=== PATIENT | male | born 1990 | race Caucasian/White ===

== ENCOUNTER 2023-03-05 07:30 | Inpatient (IN) ==
--- NOTE | 2023-03-05 07:38 | ED.PDOC ---
General ED Provider: Dr. DANAY CAREY MD Chief Complaint: Chest Pain Stated Complaint: chest pain Time Seen by Provider: 03/05/23 07:36 Nursing and Triage Documentation Reviewed and Agree: Yes Does patient meet sepsis criteria?: No System Inflammatory Response Syndrome: Not Applicable Sepsis Protocol: For patient's 13 years and over: Temp is 96.8 and below OR 101 and greater Pulse >90 BPM Resp >20/minute Acutely Altered Mental Status Are patient's symptoms suggestive of a new infection, such as: -Pneumonia -Skin, Soft Tissue -Endocarditis -UTI -Bone, Joint Infection -Implantable Device -Acute Abdominal Infection -Wound Infection -Meningitis -Blood Stream Catheter Infection -Unknown Cardiovascular Complaint Exam Chest Pain Complaint/Exam Onset: Sudden Duration: ~0600 Symptoms Are: Still present Timing: Constant Initial Severity: Moderate Current Severity: Mild Location: Reports Discrete Pain Radiates: Reports Left shoulder and Right shoulder Character: Reports Crushing, Tightness and Sharp Aggravating: Reports None Alleviating: Denies None (Zofran) Associated Signs and Symptoms: Reports Diaphoresis, Nausea, Vomiting and Cough (smoker) Related History: Denies Similar episode Related Surgical History: Reports None History of Healthcare-Acquired Pneumonia: Reports No AMI/ACS Risk Factors: Reports Diabetes and Smoking TAD Risk Factors: Reports Smoking Pulmonary Embolism Risk Factors: Reports Smoking Recent Stress Test: No Recent Echo/LV Function: No JVD Present: No Subcutaneous Emphysema Present: No Diminshed Breath Sounds: Yes Differential Diagnoses: Acute SC, ACS, Stable Angina, Unstable Angina, Chest Wall Pain, GI Diseasae and Lower Resp. Infection Quality Indicators For Acute SC or Cardiac Chest Pain: EKG in 10min. Review of Systems Review Of Systems Constitutional: Reports Sweats (with emesis) Cardiac: Reports Chest pain GI: Reports Nausea and Vomiting All Other Systems: Reviewed and Negative [facility] Medical History Diabetes (~1997) E11.9 - Type 2 diabetes mellitus without complications (ICD-10) Surgical History History of ankle surgery Z98.890 - Other specified postprocedural states (ICD-10) Physical Exam Physical Exam Appearance: Reports Well-appearing and Well-nourished Ill-appearing: None Pain Distress: Moderate Eyes: Reports MENDY, EOMI and Conjunctiva clear ENT: Reports Ears normal and Nose normal Neck: Nonsupple (normal age-appropriate external appearance) Respiratory: Reports Airway patent, Breath sounds clear, Breath sounds equal and Breath sounds diminished Cardiovascular: Reports RRR GI/: Reports Soft, Nontender and Bowel sounds normal Musculoskeletal: Reports Normal strength and ROM intact Skin: Reports Warm, Dry and Normal color Neurological: Reports Sensation intact, Motor intact, Cranial nerves intact, Alert and Oriented Psychiatric: Reports Affect appropriate and Mood appropriate Interpretation EKG Interpretation Time of EKG #1: 15:30 Rate: Tachy (103) Rhythm: Sinus Ectopy: None [place]: NL ST Segment: Normal Interpretation: sinus tach, otherwise WNL Critical Care Note Critical Care Note Total Critical Care Time (mins): 0 Course Course 03/06/23 04:03 03/06/23 17:50 Orders, Labs, Meds: Lab Review 03/05/23 03/05/23 03/05/23 08:09 08:19 08:28 WBC 20.29 H RBC 4.98 Hgb 14.5 Hct 43.9 MCV 88.2 MCH 29.1 MCHC 33.0 RDW Coeff of Tam 12.4 Plt Count 283 Immature Gran % (Auto) 0.7 Neut % (Auto) 68.2 Lymph % (Auto) 22.8 [place] % (Auto) 6.9 Eos % (Auto) 1.0 Baso % (Auto) 0.4 Neut # (Auto) 13.8 H Lymph # (Auto) 4.6 H [place] # (Auto) 1.4 Eos # (Auto) 0.2 Baso # (Auto) 0.1 Immature Gran # (Auto) 0.1 Puncture Site Base Excess O2 Saturation ABG pH ABG pCO2 ABG pO2 ABG HCO3 ABG Total CO2 [place] Test Hemoglobin Oxyhemoglobin Carboxyhemoglobin Total Hemoglobin FiO2 % Sodium 132.3 L Potassium 5.10 Chloride 98.7 Carbon Dioxide 10.0 L Anion Gap 28.70 BUN 16.4 Creatinine 1.14 H Estimated GFR (MDRD) 74.00 BUN/Creatinine Ratio 14.38 Glucose 710.9 H* Hemoglobin A1c 12.8 H Lactic Acid Calcium 8.85 Magnesium 1.88 Total Bilirubin 0.74 AST 34.0 ALT 25.5 Alkaline Phosphatase 136.1 H Total Creatine Kinase 158.5 CK-MB (CK-2) 1.690 CK-MB (CK-2) % 1.0600 Troponin I < 0.012 NT-Pro-B Natriuret Pep 191 Total Protein 6.97 Albumin 4.59 Globulin 2.38 Albumin/Globulin Ratio 1.92 Procalcitonin 0.10 H TSH 1.110 Urine Color Yellow Urine Clarity Clear Urine pH 5.5 Ur Specific [place] 1.010 Urine Protein Negative Urine Glucose (UA) 2+ H Urine Ketones 4+ Urine Blood Negative Urine Nitrite Negative Urine Bilirubin Negative Urine Urobilinogen 0.2 Ur Leukocyte Esterase Negative Urine Opiates Screen Negative Ur Oxycodone Screen Negative Urine Methadone Screen Negative Ur Propoxyphene Screen Negative Ur Barbiturates Screen Negative U Tricyclic Antidepress Negative Ur Phencyclidine Scrn Negative Ur Amphetamine Screen Negative U Methamphetamines Scrn Negative U Benzodiazepines Scrn Negative Urine Cocaine Screen Negative U Cannabinoids Screen Negative Acetone, Qual Large SARS CoV-2 RNA Rapid NA 03/05/23 03/05/23 03/05/23 10:12 11:20 13:59 WBC RBC Hgb Hct MCV MCH MCHC RDW Coeff of Tam Plt Count Immature Gran % (Auto) Neut % (Auto) Lymph % (Auto) [place] % (Auto) Eos % (Auto) Baso % (Auto) Neut # (Auto) Lymph # (Auto) [place] # (Auto) Eos # (Auto) Baso # (Auto) Immature Gran # (Auto) Puncture Site Rrad Base Excess -12.6 L O2 Saturation 98.4 H ABG pH 7.37 ABG pCO2 22.0 L ABG pO2 116.0 H ABG HCO3 12.7 L ABG Total CO2 13.4 L [place] Test Pos Hemoglobin 1.0 Oxyhemoglobin 96.5 Carboxyhemoglobin 2.4 H Total Hemoglobin 14.1 FiO2 % 21.0 Sodium Potassium Chloride Carbon Dioxide Anion Gap BUN Creatinine Estimated GFR (MDRD) BUN/Creatinine Ratio Glucose 494.3 H D Hemoglobin A1c Lactic Acid 3.42 H Calcium Magnesium Total Bilirubin AST ALT Alkaline Phosphatase Total Creatine Kinase CK-MB (CK-2) CK-MB (CK-2) % Troponin I < 0.012 NT-Pro-B Natriuret Pep Total Protein Albumin Globulin Albumin/Globulin Ratio Procalcitonin TSH Urine Color Urine Clarity Urine pH Ur Specific [place] Urine Protein Urine Glucose (UA) Urine Ketones Urine Blood Urine Nitrite Urine Bilirubin Urine Urobilinogen Ur Leukocyte Esterase Urine Opiates Screen Ur Oxycodone Screen Urine Methadone Screen Ur Propoxyphene Screen Ur Barbiturates Screen U Tricyclic Antidepress Ur Phencyclidine Scrn Ur Amphetamine Screen U Methamphetamines Scrn U Benzodiazepines Scrn Urine Cocaine Screen U Cannabinoids Screen Acetone, Qual SARS CoV-2 RNA Rapid NA 03/05/23 14:05 WBC RBC Hgb Hct MCV MCH MCHC RDW Coeff of Tam Plt Count Immature Gran % (Auto) Neut % (Auto) Lymph % (Auto) [place] % (Auto) Eos % (Auto) Baso % (Auto) Neut # (Auto) Lymph # (Auto) [place] # (Auto) Eos # (Auto) Baso # (Auto) Immature Gran # (Auto) Puncture Site Base Excess O2 Saturation ABG pH ABG pCO2 ABG pO2 ABG HCO3 ABG Total CO2 [place] Test Hemoglobin Oxyhemoglobin Carboxyhemoglobin Total Hemoglobin FiO2 % Sodium Potassium Chloride Carbon Dioxide Anion Gap BUN Creatinine Estimated GFR (MDRD) BUN/Creatinine Ratio Glucose Hemoglobin A1c Lactic Acid Calcium Magnesium Total Bilirubin AST ALT Alkaline Phosphatase Total Creatine Kinase CK-MB (CK-2) CK-MB (CK-2) % Troponin I NT-Pro-B Natriuret Pep Total Protein Albumin Globulin Albumin/Globulin Ratio Procalcitonin TSH Urine Color Urine Clarity Urine pH Ur Specific [place] Urine Protein Urine Glucose (UA) Urine Ketones Urine Blood Urine Nitrite Urine Bilirubin Urine Urobilinogen Ur Leukocyte Esterase Urine Opiates Screen Ur Oxycodone Screen Urine Methadone Screen Ur Propoxyphene Screen Ur Barbiturates Screen U Tricyclic Antidepress Ur Phencyclidine Scrn Ur Amphetamine Screen U Methamphetamines Scrn U Benzodiazepines Scrn Urine Cocaine Screen U Cannabinoids Screen Acetone, Qual SARS CoV-2 RNA Rapid NA Negative Orders Category Date Time Status ABG DRAW REQUEST Stat CARDIO 03/05/23 09:50 Completed EKG-(ED ONLY) Stat CARDIO 03/05/23 08:01 Completed INTAKE & OUTPUT Q8HR CARE 03/05/23 08:01 Completed TELEMETRY MONITORING TELE CARE 03/05/23 08:01 Completed VITAL SIGNS Q8HR CARE 03/05/23 08:01 Completed Saline Lock [ED IV/MEDIPORT/POWERPORT] .ONCE EMERGENCY 03/05/23 07:40 Completed ABG COOX Stat LAB 03/05/23 13:59 Completed ACETONE, QUALITATIVE Stat LAB 03/05/23 08:28 Completed BLOOD CULTURE (ED ONLY) Stat LAB 03/05/23 10:16 Completed CBC W/ AUTO DIFF Stat LAB 03/05/23 08:28 Completed COMPREHENSIVE METABOLIC PANEL Stat LAB 03/05/23 08:28 Completed COVID [SARS COV-2 RNA RAPID NA] Stat LAB 03/05/23 14:05 Completed CREATINE KINASE Stat LAB 03/05/23 08:28 Completed GLUCOSE Stat LAB 03/05/23 11:20 Completed HEMOGLOBIN A1C (CLINIC ONLY) Stat LAB 03/05/23 08:28 Completed LACTIC ACID Stat LAB 03/05/23 10:12 Completed MAGNESIUM Stat LAB 03/05/23 08:28 Completed PROBNP ED [NT-PROBNP(ED)] Stat LAB 03/05/23 08:28 Completed PROCALCITONIN Stat LAB 03/05/23 08:28 Completed TROPONIN I Stat LAB 03/05/23 08:28 Completed TROPONIN I Timed LAB 03/05/23 10:12 Completed TSH [THYROID STIMULATING HORMONE] Stat LAB 03/05/23 08:28 Completed URINALYSIS C & S IF INDICATED Stat LAB 03/05/23 08:19 Completed URINE DRUG SCREEN (RAPID FOR ED) [DRUG SCREEN, URINE, LAB 03/05/23 08:09 Completed RAPID] Stat 0.9 % Sodium Chloride [Saline Flush] MEDS 03/05/23 07:40 Discontinued 1 syr IVF PRN PRN Insulin Regular, Human [Humulin R] MEDS 03/05/23 09:07 Discontinued 12 unit IVP ONCE ONE Insulin Regular, Human [Humulin R] MEDS 03/05/23 10:20 Discontinued 12 unit IVP ONCE ONE Insulin Regular, Human [Humulin R] MEDS 03/05/23 12:22 Discontinued 12 unit IVP ONCE ONE Ketorolac Tromethamine [Toradol] MEDS 03/05/23 08:19 Discontinued 30 mg IVP ONCE ONE Mag-Al Plus//Lidocaine [Gi Cocktail] MEDS 03/05/23 07:47 Discontinued 30 ml PO ONCE ONE Ondansetron HCl/Pf [Zofran 4 mg/2 ml] MEDS 03/05/23 07:40 Discontinued 4 mg IVP ONCE ONE Sodium Chloride 0.9% [Sodium Chloride] 1,000 ml MEDS 03/05/23 13:58 Discontinued IV BOLUS RESUSCITATION STATUS Routine OTHERS 03/05/23 08:00 Completed CHEST, 1V AP ONLY Stat RADS 03/05/23 08:01 Completed Medications Discontinued Medications Generic Name Dose Route Start Last Admin Trade Name Jaxon PRN Reason Stop Dose Admin Al Hydroxide/Mg Hydroxide 30 ml 03/05/23 07:47 03/05/23 07:52 Mag-Al Plus//Lidocaine 30 Ml Btl PO 03/05/23 07:48 30 ml ONCE ONE Administration Sodium Chloride 1,000 mls @ 1,000 mls/hr 03/05/23 13:58 03/05/23 14:03 Sodium Chloride IV 03/05/23 14:57 1,000 mls/hr BOLUS STA Administration Sodium Chloride 1,000 mls @ 150 mls/hr 03/05/23 17:00 03/05/23 17:29 Sodium Chloride IV 150 mls/hr .Q6H40M PAVITHRA Administration INSULIN REGULAR IN 0.9 % NACL 100 unit in 100 mls @ 2 mls/hr 03/05/23 20:00 03/05/23 19:56 Myxredlin 100 Unit/100 Ml Bag IV 10 unit/hr TITRATION PAVITHRA 10 mls/hr Administration Protocol 2 UNIT/HR Potassium Chloride/Sodium Chloride 1,000 mls @ 150 mls/hr 03/05/23 23:00 Sodium Chloride 0.45%-Kcl 20 Meq IV ONCE PAVITHRA Potassium Chloride/Sodium Chloride 1,000 mls @ 150 mls/hr 03/05/23 23:00 03/06/23 05:38 Sodium Chloride 0.9%-Kcl 20 Meq IV 150 mls/hr .Q6H40M PAVITHRA Administration Potassium Chloride/Sodium Chloride 1,000 mls @ 50 mls/hr 03/06/23 07:26 03/06/23 11:46 Sodium Chloride 0.9%-Kcl 20 Meq IV Not Given .Q20H PAVITHRA Insulin Glargine 30 unit 03/05/23 21:00 03/06/23 20:58 Insulin Glargine,Hum.Rec.Anlog 100 Units/Ml SUBCUT 30 unit BID PAVITHRA Administration Insulin Human Regular 12 unit 03/05/23 09:07 03/05/23 09:16 Insulin Regular, Human 100 Unit/Ml (3ml) Vial IVP 03/05/23 09:08 12 unit ONCE ONE Administration Insulin Human Regular 12 unit 03/05/23 10:20 03/05/23 10:52 Insulin Regular, Human 100 Unit/Ml (3ml) Vial IVP 03/05/23 10:21 12 unit ONCE ONE Administration Insulin Human Regular 12 unit 03/05/23 12:22 03/05/23 12:34 Insulin Regular, Human 100 Unit/Ml (3ml) Vial IVP 03/05/23 12:23 12 unit ONCE ONE Administration Insulin Human Regular 0 unit 03/05/23 16:40 03/06/23 18:32 Insulin Regular, Human 100 Unit/Ml (3ml) Vial SUBCUT 4 unit PRN PRN Administration Hyperglycemia Protocol Ketorolac Tromethamine 30 mg 03/05/23 08:19 03/05/23 08:23 Ketorolac Tromethamine 30 Mg/Ml Vial IVP 03/05/23 08:20 30 mg ONCE ONE Administration Lisinopril 10 mg 03/06/23 09:00 03/06/23 09:07 Lisinopril 10 Mg Tablet PO 10 mg DAILY PAVITHRA Administration Ondansetron HCl 4 mg 03/05/23 07:40 03/05/23 07:45 Ondansetron Hcl/Pf 4 Mg/2 Ml Sdv IVP 03/05/23 07:41 4 mg ONCE ONE Administration Ondansetron HCl 8 mg 03/05/23 19:31 03/05/23 19:56 Ondansetron Hcl/Pf 4 Mg/2 Ml Sdv IVP 8 mg Q6H PRN Administration Hyperglycemia Pantoprazole Sodium 40 mg 03/05/23 16:50 03/06/23 05:38 Pantoprazole Sodium 40 Mg Tablet.Dr PO 40 mg QDAC PAVITHRA Administration Potassium Chloride/Sodium Chloride 1,000 ml 03/05/23 22:30 03/06/23 01:18 Potassium Chloride 20 Meq In 0.45% Nacl 1000 Ml IV 03/05/23 22:31 Not Given NOW ONE Sodium Bicarbonate 50 meq 03/05/23 21:01 03/05/23 21:19 Sodium Bicarbonate 50 Meq/50 Ml Disp.Syrin IVP 03/05/23 21:02 50 meq ONCE ONE Administration Sodium Chloride 1 syr 03/05/23 07:40 0.9% Sodium Chloride 10 Ml Disp.Syrin IVF PRN PRN To flush IV Vital Signs: Temp Pulse Resp BP Pulse Ox 03/05/23 07:34 97.1 F L 83 20 148/91 H 98 Patient presents with substernal chest pain radiating to the bilateral shoulders which began at ~0600. ECG on arrival was non-acute, showing only sinus tach (103). CX reported no acute disease. Labs posted, significant for leukocytosis with left shift, depressed CO2 (10.0), elevated Glucose (710.9). The Glucose was brought down gently with several Regular Insulin boluses. He was given IVF. He was given antiemetics and Ketorolac, which completely resolved his discomfort and N/V. When his Glucose normalized (313) his PCP, Dr Blood, was contacted. He said to admit to him to Dr Blood's service. He was in stable condition when transported from the ED to the medical floor. ADEN Risk Score DAEN Risk Score: Risk Score Odds of by 30D 0 0.1 (0.1-0.2) 1 0.3 (0.2-0.3) 2 0.4 (0.3-0.5) 3 0.7 (0.6-0.9) 4 1.2 (1.0-1.5) 5 2.2 (1.9-2.6) 6 3.0 (2.5-3.6) 7 4.8 (3.8-6.1) Discharge Plan Discharge Patient Disposition: ADMITTED INPATIENT Discharge Problem: DKA, type 1 Did you review [place] [employer] for ALL controlled substances?: Not Applicable ED Provider: DANAY CAREY Condition: Stable Physician Progress Note: []
[2023-03-05] MEDS ORDERED: ZOFRAN 4 MG/2 ML IVP ONE (07:40)
[2023-03-05] MEDS ORDERED: GI COCKTAIL PO ONE (07:47)
[2023-03-05] MEDS ORDERED: TORADOL IVP ONE (08:19)
[2023-03-05 08:27] LABS: BILIRUBIN,URINE Negative (NEGATIVE); CLARITY,URINE Clear (CLEAR); COLOR,URINE Yellow (YELLOW); GLUCOSE, URINE (UA) 2+ (NEGATIVE); KETONES,URINE 4+ (NEGATIVE); LEUKOCYTE ESTERASE ,URINE Negative (NEGATIVE); NITRITE,URINE Negative (NEGATIVE); PH,URINE 5.5 (5-9); PROTEIN,URINE Negative (NEGATIVE); URINE, BLOOD Negative (NEGATIVE); UROBILINOGEN,URINE 0.2 (0.2)
--- NOTE | 2023-03-05 08:33 | DI ---
EXAM: CHEST RADIOGRAPH TECHNIQUE: Single frontal chest radiograph. HISTORY: Chest pain COMPARISON: None. FINDINGS: The lungs are clear. The heart size is normal. The osseous structures are unremarkable. IMPRESSION: 1. No acute disease.
[2023-03-05 08:35] LABS: AMPHETAMINE SCREEN,URINE NEGATIVE (NEGATIVE); BARBITURATE SCREEN,URINE NEGATIVE (NEGATIVE); BENZODIAZEPINES SCREEN,URINE NEGATIVE (NEGATIVE); CANNABINOID SCREEN,URINE NEGATIVE (NEGATIVE); COCAIN SCREEN,URINE NEGATIVE (NEGATIVE); METHADONE URINE SCREEN NEGATIVE (NEGATIVE); METHAMPHETAMINES SCREEN,URINE NEGATIVE (NEGATIVE); OPIATE SCREEN,URINE NEGATIVE (NEGATIVE); OXYCODONE URINE SCREEN NEGATIVE (NEGATIVE); PHENCYCLIDINE SCREEN,URINE NEGATIVE (NEGATIVE); PROPOXYPHENE URINE SCREEN NEGATIVE (NEGATIVE); TRICYCLIC ANTIDEPRESSANTS URIN NEGATIVE (NEGATIVE)
[2023-03-05 08:44] LABS: MAGNESIUM 1.88 mg/dL (1.6-2.3)
[2023-03-05 08:46] LABS: ALANINE AMINOTRANSFERASE 25.5 U/L (0-50); ALBUMIN 4.59 g/dL (3.5-5.0); ALKALINE PHOSPHATASE 136.1 U/L (38-126); BILIRUBIN,TOTAL 0.74 mg/dL (0.2-1.3); BLOOD UREA NITROGEN 16.4 mg/dL (9-20); CALCIUM 8.85 mg/dL (8.4-10.2); CHLORIDE 98.7 mmol/L (98-107); CREATINE KINASE 158.5 U/L (55-170); CREATININE 1.14 mg/dL (0.60-1.10); SODIUM 132.3 mmol/L (134.5-145); TOTAL PROTEIN 6.97 g/dL (6.3-8.2)
[2023-03-05 08:56] LABS: BASOPHILS # (AUTO) 0.1 K/uL (0-0.2); BASOPHILS % (AUTO) 0.4 % (0.0-3.0); EOSINOPHILS # (AUTO) 0.2 K/ul (0.0-0.7); HEMATOCRIT 43.9 % (42.0-52.0); HEMOGLOBIN 14.5 g/dl (14.0-18.0); IMMATURE GRANULOCYTE # (AUTO) 0.1 (0.0-1.0); IMMATURE GRANULOCYTE % (AUTO) 0.7 % (0.0-5.0); LYMPHOCYTES # (AUTO) 4.6 K/uL (0.60-3.4); LYMPHOCYTES % (AUTO) 22.8 (10.0-50.0); MEAN CORPUSCULAR HEMOGLOBIN 29.1 pg (27.0-31.0); MEAN CORPUSCULAR VOLUME 88.2 fl (80.0-94.0); MONOCYTES # (AUTO) 1.4 K/uL (0.4-2.0); MONOCYTES % (AUTO) 6.9 (0-10); NEUTROPHILS # (AUTO) 13.8 K/ul (2.0-6.9); NEUTROPHILS % (AUTO) 68.2 % (42.2-75.2); PLATELET COUNT 283 10^3/uL (140-440); RDW COEFFICIENT OF VARIATION 12.4 % (11.6-14.8); RED BLOOD COUNT 4.98 10^6/ul (4.70-6.10); WHITE BLOOD COUNT 20.29 K/ul (4.2-10.2)
[2023-03-05 08:58] LABS: TROPONIN I < 0.012 ng/ml (0.0000-0.120)
[2023-03-05 09:03] LABS: GLUCOSE 710.9 mg/dL (74-106)
[2023-03-05] MEDS ORDERED: HUMULIN R IVP ONE ×3 (09:07→12:22)
[2023-03-05 09:15] LABS: THYROID STIMULATING HORMONE 1.11 uIU/L (0.465-4.68)
[2023-03-05] MEDS ORDERED: SODIUM CHLORIDE 1,000 ML IV STA ×2 (13:58)
[2023-03-05 14:06] LABS: SARS COV-2 RNA RAPID NAAT NEGATIVE (NEGATIVE)
[2023-03-05 14:08] LABS: ABG O2 HGB 96.5 % (95-100); ABG PH 7.37 (7.35-7.45); BEecf -12.6 (-2.0-3.0); COHb 2.4 (0.5-1.5); HCO3 12.7 (21-28); TCO2 13.4 (19-24); sO2 98.4 % (94-98); tHb 14.1 g/dl (11.7-17.4)
[2023-03-05 16:20] VITALS: BMI 25.7
[2023-03-05] MEDS ORDERED: SODIUM CHLORIDE 1,000 ML IV SCH (17:00)
[2023-03-05] MEDS: PROTONIX PO SCH (17:27)
[2023-03-05] MEDS: HUMULIN R SUBCUT PRN (17:29)
[2023-03-05 19:04] LABS: BLOOD UREA NITROGEN 14.2 mg/dL (9-20); CREATININE 1.3 mg/dL (0.60-1.10); SODIUM 131.3 mmol/L (134.5-145)
[2023-03-05 19:05] LABS: CALCIUM 8.03 mg/dL (8.4-10.2); GLUCOSE 460.3 mg/dL (74-106)
[2023-03-05 19:12] LABS: POTASSIUM 6.04 mmol/L (3.5-5.1)
[2023-03-05 19:13] LABS: CARBON DIOXIDE 5.2 mmol/L (22-30.0)
[2023-03-05] MEDS ORDERED: ZOFRAN 4 MG/2 ML IVP PRN (19:31)
[2023-03-05] MEDS ORDERED: MYXREDLIN 100 UNIT/100 ML BAG 100 UNIT/100 ML PLAST..BAG IV SCH (20:00)
[2023-03-05] MEDS: LANTUS SUBCUT SCH (20:20)
[2023-03-05] MEDS ORDERED: SODIUM BICARBONATE 8.4% IVP ONE (21:01)
[2023-03-05 22:08] LABS: BLOOD UREA NITROGEN 14.6 mg/dL (9-20); CALCIUM 8.58 mg/dL (8.4-10.2); CARBON DIOXIDE 18.6 mmol/L (22-30.0); CHLORIDE 106.3 mmol/L (98-107); CREATININE 1.25 mg/dL (0.60-1.10); GLUCOSE 104.2 mg/dL (74-106); POTASSIUM 3.76 mmol/L (3.5-5.1); SODIUM 140.5 mmol/L (134.5-145)
[2023-03-05] MEDS ORDERED: SODIUM CHLORIDE 0.45%-KCL 20 MEQ IV ONE (22:30)
[2023-03-05] MEDS ORDERED: SODIUM CHLORIDE 0.45%-KCL 20 MEQ 1,000 ML IV SCH (23:00)
[2023-03-06] MEDS: SODIUM CHLORIDE 0.9%-KCL 20 MEQ 1,000 ML IV SCH ×2 (00:28→05:38)
[2023-03-06 04:08] LABS: BASOPHILS # (AUTO) 0.1 K/uL (0-0.2); BASOPHILS % (AUTO) 0.4 % (0.0-3.0); EOSINOPHILS # (AUTO) 0.1 K/ul (0.0-0.7); EOSINOPHILS % (AUTO) 0.4 % (0.0-7.0); HEMATOCRIT 39.4 % (42.0-52.0); HEMOGLOBIN 13.2 g/dl (14.0-18.0); IMMATURE GRANULOCYTE % (AUTO) 0.2 % (0.0-5.0); LYMPHOCYTES # (AUTO) 3.8 K/uL (0.60-3.4); LYMPHOCYTES % (AUTO) 26.7 (10.0-50.0); MEAN CORPUSCULAR HEMOGLOBIN 28.9 pg (27.0-31.0); MEAN CORPUSCULAR HGB CONC 33.5 (31.8-35.4); MEAN CORPUSCULAR VOLUME 86.4 fl (80.0-94.0); MONOCYTES # (AUTO) 1.2 K/uL (0.4-2.0); MONOCYTES % (AUTO) 8.6 (0-10); NEUTROPHILS % (AUTO) 63.7 % (42.2-75.2); PLATELET COUNT 239 10^3/uL (140-440); RDW COEFFICIENT OF VARIATION 12.3 % (11.6-14.8); RED BLOOD COUNT 4.56 10^6/ul (4.70-6.10); WHITE BLOOD COUNT 14.06 K/ul (4.2-10.2)
[2023-03-06 04:21] LABS: ALANINE AMINOTRANSFERASE 23.5 U/L (0-50); ALBUMIN 3.82 g/dL (3.5-5.0); ALKALINE PHOSPHATASE 95.5 U/L (38-126); ASPARTATE AMINO TRANSFERASE 31.5 U/L (17-59); BILIRUBIN,TOTAL 0.49 mg/dL (0.2-1.3); BLOOD UREA NITROGEN 12.4 mg/dL (9-20); CALCIUM 8.01 mg/dL (8.4-10.2); CARBON DIOXIDE 20.6 mmol/L (22-30.0); CHLORIDE 109.2 mmol/L (98-107); CREATININE 1.09 mg/dL (0.60-1.10); GLUCOSE 60.1 mg/dL (74-106); POTASSIUM 4.16 mmol/L (3.5-5.1); SODIUM 138.3 mmol/L (134.5-145); TOTAL PROTEIN 6.26 g/dL (6.3-8.2)
[2023-03-06] MEDS: PROTONIX PO SCH (05:38)
[2023-03-06] MEDS ORDERED: SODIUM CHLORIDE 0.9%-KCL 20 MEQ 1,000 ML IV SCH (07:26)
[2023-03-06] MEDS ORDERED: ZESTRIL PO SCH (09:00)
[2023-03-06] MEDS: LANTUS SUBCUT SCH ×2 (09:09→20:58)
[2023-03-06] MEDS: HUMULIN R SUBCUT PRN ×2 (10:41→18:32)
[2023-03-06 18:14] LABS: BLOOD UREA NITROGEN 10.7 mg/dL (9-20); CALCIUM 8.25 mg/dL (8.4-10.2); CARBON DIOXIDE 24.2 mmol/L (22-30.0); CHLORIDE 105.4 mmol/L (98-107); CREATININE 0.92 mg/dL (0.60-1.10); GLUCOSE 173.1 mg/dL (74-106); POTASSIUM 3.62 mmol/L (3.5-5.1); SODIUM 135.1 mmol/L (134.5-145)
[2023-03-06 21:51] VITALS: BP 115/78; TEMP 98
== END 2023-03-06 21:30 | disposition home or self-care (01) | DRG 639 ==
LOC: ED 07:30 → MEDSURG A 14:46
PROVIDERS: ADMIT Family Medicine Addiction Medicine; ATTEND Family Medicine

== ENCOUNTER 2023-05-10 15:39 | Inpatient (IN) ==
[2023-05-10 15:48] VITALS: BMI 25.4
[2023-05-10] MEDS ORDERED: SODIUM CHLORIDE 1,000 ML IV STA (15:49)
--- NOTE | 2023-05-10 16:14 | ED.PDOC ---
General ED Provider: Dr. ONUR CASON DO Chief Complaint: Non-specific Complaint Stated Complaint: 32 YOM with PMHx of DKA and poorly controlled IDDM who presents to the emergency department with chief complaint of feeling dehydrated and elevated home glucose readings in 500s. Patient states he noticed his glucose readings climbing in the last day or two and attempted to correct with bolusing subcutaneous insulin and "pounding water" but was unable to correct with home management. Patient admits to having continued difficulty with managing his blood sugar and states he is waiting to receive a insulin pump. Admits to some intermittent chest pain and nausea. Denies fever, syncope, SOB, new cough, vomiting, diarrhea, dysuria, flank pain, or new focal weakness. No other associated symptoms or modifying factors at this time. Time Seen by Provider: 05/10/23 16:12 Mode of Arrival: Walk-In Information Source: Patient Exam Limitations: No limitations Primary Care Provider: JADE CHONG Nursing and Triage Documentation Reviewed and Agree: Yes Does patient meet sepsis criteria?: No If yes, has appropriate treatment been initiated?: No System Inflammatory Response Syndrome: Not Applicable Sepsis Protocol: For patient's 13 years and over: Temp is 96.8 and below OR 101 and greater Pulse >90 BPM Resp >20/minute Acutely Altered Mental Status Are patient's symptoms suggestive of a new infection, such as: -Pneumonia -Skin, Soft Tissue -Endocarditis -UTI -Bone, Joint Infection -Implantable Device -Acute Abdominal Infection -Wound Infection -Meningitis -Blood Stream Catheter Infection -Unknown Review of Systems Review Of Systems Constitutional: Reports No symptoms All Other Systems: Reviewed and Negative [facility] Medical History Diabetes (~1997) E11.9 - Type 2 diabetes mellitus without complications (ICD-10) Surgical History History of ankle surgery Z98.890 - Other specified postprocedural states (ICD-10) Physical Exam Physical Exam Appearance: Reports Well-appearing, No pain distress and Well-nourished Ill-appearing: None Pain Distress: None Eyes: Reports MENDY, EOMI and Conjunctiva clear ENT: Reports Ears normal, Nose normal and Oropharynx normal Neck: Supple Respiratory: Reports Airway patent, Breath sounds clear, Breath sounds equal and Respirations nonlabored Cardiovascular: Reports Pulses normal, No rub, No murmur and Tachycardia (Regular/sinus without ectopy) GI/: Reports Soft, Nontender, No masses, Bowel sounds normal and No Organomegaly Musculoskeletal: Reports Normal strength, ROM intact, No edema and No calf tenderness Skin: Reports Warm, Dry and Normal color Neurological: Reports Sensation intact, Motor intact, Reflexes intact, Cranial n erves intact, Alert and Oriented Psychiatric: Reports Affect appropriate and Mood appropriate Interpretation EKG Interpretation EKG Interpretation By: ED Physician Time of EKG #1: 16:22 Rate: Normal Rhythm: Sinus Ectopy: None [place]: NL ST Segment: Normal Interpretation: No evidence of STEMI on my independent interpretation of this E KG EKG Comparison: No significant changes EKG Interpretation By: ED Physician Critical Care Note Critical Care Note Total Critical Care Time (mins): 0 Course Course 05/11/23 04:53 05/11/23 04:53 Orders, Labs, Meds: Lab Review 05/10/23 05/10/23 05/10/23 16:06 16:13 16:54 WBC 16.36 H RBC 5.50 Hgb 16.2 Hct 48.8 MCV 88.7 MCH 29.5 MCHC 33.2 RDW Coeff of Tam 12.6 Plt Count 308 Immature Gran % (Auto) 0.4 Neut % (Auto) 80.6 H Lymph % (Auto) 14.2 [place] % (Auto) 4.4 Eos % (Auto) 0.1 Baso % (Auto) 0.3 Neut # (Auto) 13.2 H Lymph # (Auto) 2.3 [place] # (Auto) 0.7 Eos # (Auto) 0.0 Baso # (Auto) 0.1 Immature Gran # (Auto) 0.1 VBG pH 7.08 L VBG pCO2 35 L VBG pO2 38 VBG HCO3 10.4 L VBG O2 Saturation 47.8 L Sodium 136.1 Potassium 5.11 H Chloride 99.9 Carbon Dioxide 11.6 L Anion Gap 29.71 BUN 18.6 Creatinine 1.57 H Estimated GFR (MDRD) 51.00 BUN/Creatinine Ratio 11.84 Glucose 537.6 H* Hemoglobin A1c 12.64 H Calcium 9.53 Phosphorus 5.57 H Magnesium 1.94 Total Bilirubin 0.72 AST 35.1 ALT 36.5 Alkaline Phosphatase 149.2 H Total Creatine Kinase 106.2 Total Protein 8.59 H Albumin 5.43 H Globulin 3.16 Albumin/Globulin Ratio 1.71 Urine Color Yellow Urine Clarity Clear Urine pH 5.5 Ur Specific [place] >=1.030 Urine Protein 1+ H Urine Glucose (UA) 2+ H Urine Ketones 3+ H Urine Blood Trace-intact H Urine Nitrite Negative Urine Bilirubin Negative Urine Urobilinogen 0.2 Ur Leukocyte Esterase Negative Urine Microscopic RBC 0-2 Ur Squamous Epith Cells Not Reportable Urine Opiates Screen Negative Ur Oxycodone Screen Negative Urine Methadone Screen Negative Ur Propoxyphene Screen Negative Ur Barbiturates Screen Negative U Tricyclic Antidepress Negative Ur Phencyclidine Scrn Negative Ur Amphetamine Screen Negative U Methamphetamines Scrn Negative U Benzodiazepines Scrn Negative Urine Cocaine Screen Negative U Cannabinoids Screen Positive H Acetone, Qual Small Orders Category Date Time Status ADMIT PATIENT INPATIENT .TO SCU (MONITORED BED) ADMISSION 05/10/23 17:37 Active EKG-(ED ONLY) Stat CARDIO 05/10/23 16:13 Ordered BLOOD GLUCOSE MONITORING (MED/SURG) Q1HR CARE 05/10/23 16:40 Completed REMINDER: BMP Q4hrs Until Anion Gap < 12 Q4HR CARE 05/10/23 16:39 Active REMINDER: BMP Q8HRS Once Anion Gap <12 PRN CARE 05/10/23 16:39 Active REMINDER: Call Provider if K < 3.3 meq/L PRN CARE 05/10/23 16:39 Active REMINDER: Hold IV Fluids with KCL PRN CARE 05/10/23 16:39 Active REMINDER: Print DKA Nursing Protocol PRN CARE 05/10/23 16:39 Active TELEMETRY MONITORING TELE CARE 05/10/23 17:38 Active VITAL SIGNS Q4HR CARE 05/10/23 16:39 Active ACETONE, QUALITATIVE Stat LAB 05/10/23 16:06 Completed BLOOD CULTURE Stat LAB 05/10/23 17:02 Received CBC W/ AUTO DIFF Stat LAB 05/10/23 16:06 Completed COMPREHENSIVE METABOLIC PANEL Stat LAB 05/10/23 16:06 Completed CREATINE KINASE Stat LAB 05/10/23 16:06 Completed DRUG SCREEN, URINE, RAPID Stat LAB 05/10/23 16:54 Completed HEMOGLOBIN A1C Stat LAB 05/10/23 16:06 Completed MAGNESIUM Stat LAB 05/10/23 16:06 Completed PHOSPHORUS Stat LAB 05/10/23 16:06 Completed URINALYSIS C & S IF INDICATED Stat LAB 05/10/23 16:54 Completed VENOUS BLOOD GAS Stat LAB 05/10/23 16:13 Completed Insulin Regular in 0.9 % NaCl [Myxredlin 100 Unit/100 Meds 05/10/23 17:00 Discontinued ml Bag] 100 unit in 100 ml IV TITRATION Insulin Regular, Human [Humulin R] Meds 05/10/23 16:39 Discontinued 8 unit IVP ONCE STA Sodium Chloride 0.9% [Sodium Chloride] 1,000 ml Meds 05/10/23 15:49 Discontinued IV BOLUS Sodium Chloride 0.9% [Sodium Chloride] 1,000 ml Meds 05/10/23 16:39 D iscontinued IV BOLUS Medications Generic Name Dose Route Start Last Admin Trade Name Freq PRN Reason Stop Dose Admin Acetaminophen 650 mg 05/10/23 18:14 Acetaminophen 325 Mg Tablet PO Q4H PRN Mild Pain Dextrose 50 ml 05/10/23 21:10 Dextrose 50 % In Water 50 Ml Disp.Syrin IVP PRN PRN Glucose < 70 Enoxaparin Sodium 40 mg 05/11/23 09:00 Enoxaparin Sodium 40 Mg/0.4 Ml Syr SUBCUT DAILY PAVITHRA Lactated Ringer's 1,000 mls @ 150 mls/hr 05/11/23 06:45 Lactated Ringers IV .Q6H40M [facility] Insulin Human Lispro 0 unit 05/11/23 02:33 05/11/23 05:28 Insulin Lispro 100 Unit/Ml (3 Ml) Vial SUBCUT 6 unit PRN PRN Administration Hyperglycemia Protocol Ondansetron HCl 4 mg 05/10/23 18:14 Ondansetron Hcl/Pf 4 Mg/2 Ml Sdv IVP Q6H PRN Nausea / Vomiting Discontinued Medications Generic Name Dose Route Start Last Admin Trade Name Freq PRN Reason Stop Dose Admin Sodium Chloride 1,000 mls @ 1,000 mls/hr 05/10/23 15:49 05/10/23 16:20 Sodium Chloride IV 05/10/23 16:48 1,000 mls/hr BOLUS STA Administration Sodium Chloride 1,000 mls @ 1,000 mls/hr 05/10/23 16:39 05/10/23 17:36 Sodium Chloride IV 05/10/23 17:38 1,000 mls/hr BOLUS ONE Administration INSULIN REGULAR IN 0.9 % NACL 100 unit in 100 mls @ 7.811 mls/hr 05/10/23 17:00 05/11/23 01:30 Myxredlin 100 Unit/100 Ml Bag IV 05/11/23 03:00 Infused TITRATION PAVITHRA Titration Protocol 0.1 UNIT/KG/HR Sodium Chloride 1,000 mls @ 250 mls/hr 05/10/23 18:30 05/10/23 19:13 Sodium Chloride IV 250 mls/hr .Q4H PAVITHRA Administration Potassium Chloride/Dextrose/Sod Cl 1,000 mls @ 250 mls/hr 05/10/23 20:00 00:02 D5%-1/2ns-Kcl 20 Meq/L Iv Kasia IV 05/11/23 03:00 250 mls/hr .Q4H PAVITHRA Administration Insulin Glargine 64 unit 05/11/23 02:20 05/11/23 02:28 Insulin Glargine,Hum.Rec.Anlog 100 Units/Ml SUBCUT 05/11/23 02:21 64 unit ONCE ONE Administration Insulin Human Regular 8 unit 05/10/23 16:39 05/10/23 16:49 Insulin Regular, Human 100 Unit/Ml (3ml) Vial 0.1 unit/kg (8 unit) 05/10/23 16:40 8 unit IVP Administration ONCE STA Vital Signs: Temp Pulse Resp BP Pulse Ox 05/10/23 15:43 98.1 F 101 H 18 132/89 99 Discharge Plan Discharge Patient Disposition: ADMITTED INPATIENT Discharge Problem: AG (acute kidney injury), DKA (diabetic ketoacidosis), Metabolic acidosis, High anion gap metabolic acidosis Did you review [place] [employer] for ALL controlled substances?: Not Applicable ED Provider: ONUR CASON Physician Progress Note: []
[2023-05-10 16:15] LABS: BASOPHILS # (AUTO) 0.1 K/uL (0-0.2); BASOPHILS % (AUTO) 0.3 % (0.0-3.0); EOSINOPHILS % (AUTO) 0.1 % (0.0-7.0); HEMATOCRIT 48.8 % (42.0-52.0); HEMOGLOBIN 16.2 g/dl (14.0-18.0); IMMATURE GRANULOCYTE # (AUTO) 0.1 (0.0-1.0); IMMATURE GRANULOCYTE % (AUTO) 0.4 % (0.0-5.0); LYMPHOCYTES # (AUTO) 2.3 K/uL (0.60-3.4); LYMPHOCYTES % (AUTO) 14.2 (10.0-50.0); MEAN CORPUSCULAR HEMOGLOBIN 29.5 pg (27.0-31.0); MEAN CORPUSCULAR HGB CONC 33.2 (31.8-35.4); MEAN CORPUSCULAR VOLUME 88.7 fl (80.0-94.0); MONOCYTES # (AUTO) 0.7 K/uL (0.4-2.0); MONOCYTES % (AUTO) 4.4 (0-10); NEUTROPHILS # (AUTO) 13.2 K/ul (2.0-6.9); NEUTROPHILS % (AUTO) 80.6 % (42.2-75.2); PLATELET COUNT 308 10^3/uL (140-440); RDW COEFFICIENT OF VARIATION 12.6 % (11.6-14.8); WHITE BLOOD COUNT 16.36 K/ul (4.2-10.2)
[2023-05-10 16:21] LABS: VBG HCO3 10.4 (22-26); VBG OXYGEN SATURATION 47.8 (60-80); VBG PH 7.08 (7.30-7.40)
[2023-05-10 16:24] LABS: ALANINE AMINOTRANSFERASE 36.5 U/L (0-50); ALBUMIN 5.43 g/dL (3.5-5.0); ALKALINE PHOSPHATASE 149.2 U/L (38-126); ASPARTATE AMINO TRANSFERASE 35.1 U/L (17-59); BILIRUBIN,TOTAL 0.72 mg/dL (0.2-1.3); BLOOD UREA NITROGEN 18.6 mg/dL (9-20); CALCIUM 9.53 mg/dL (8.4-10.2); CARBON DIOXIDE 11.6 mmol/L (22-30.0); CHLORIDE 99.9 mmol/L (98-107); CREATINE KINASE 106.2 U/L (55-170); CREATININE 1.57 mg/dL (0.60-1.10); POTASSIUM 5.11 mmol/L (3.5-5.1); SODIUM 136.1 mmol/L (134.5-145); TOTAL PROTEIN 8.59 g/dL (6.3-8.2)
[2023-05-10 16:39] LABS: GLUCOSE 537.6 mg/dL (74-106)
[2023-05-10] MEDS ORDERED: HUMULIN R IVP STA (16:39)
[2023-05-10] MEDS ORDERED: SODIUM CHLORIDE 1,000 ML IV ONE (16:39)
[2023-05-10 16:50] LABS: MAGNESIUM 1.94 mg/dL (1.6-2.3); PHOSPHORUS 5.57 mg/dL (2.5-4.5)
[2023-05-10] MEDS ORDERED: MYXREDLIN 100 UNIT/100 ML BAG 100 UNIT/100 ML PLAST..BAG IV SCH (17:00)
[2023-05-10 17:14] LABS: BILIRUBIN,URINE Negative (NEGATIVE); CLARITY,URINE Clear (CLEAR); COLOR,URINE Yellow (YELLOW); GLUCOSE, URINE (UA) 2+ (NEGATIVE); KETONES,URINE 3+ (NEGATIVE); LEUKOCYTE ESTERASE ,URINE Negative (NEGATIVE); NITRITE,URINE Negative (NEGATIVE); PH,URINE 5.5 (5-9); PROTEIN,URINE 1+ (NEGATIVE); URINE, BLOOD Trace-intact (NEGATIVE); UROBILINOGEN,URINE 0.2 (0.2)
[2023-05-10 17:22] LABS: URINE RBC, MICROSCOPIC 0-2 (0-2)
[2023-05-10 17:23] LABS: AMPHETAMINE SCREEN,URINE NEGATIVE (NEGATIVE); BARBITURATE SCREEN,URINE NEGATIVE (NEGATIVE); BENZODIAZEPINES SCREEN,URINE NEGATIVE (NEGATIVE); CANNABINOID SCREEN,URINE POSITIVE (NEGATIVE); COCAIN SCREEN,URINE NEGATIVE (NEGATIVE); METHADONE URINE SCREEN NEGATIVE (NEGATIVE); METHAMPHETAMINES SCREEN,URINE NEGATIVE (NEGATIVE); OPIATE SCREEN,URINE NEGATIVE (NEGATIVE); OXYCODONE URINE SCREEN NEGATIVE (NEGATIVE); PHENCYCLIDINE SCREEN,URINE NEGATIVE (NEGATIVE); PROPOXYPHENE URINE SCREEN NEGATIVE (NEGATIVE); TRICYCLIC ANTIDEPRESSANTS URIN NEGATIVE (NEGATIVE)
[2023-05-10] MEDS ORDERED: TYLENOL PO PRN (18:14)
[2023-05-10] MEDS ORDERED: ZOFRAN 4 MG/2 ML IVP PRN (18:14)
[2023-05-10] MEDS ORDERED: SODIUM CHLORIDE 1,000 ML IV SCH (18:30)
[2023-05-10 18:34] LABS: VBG HCO3 14.9 (22-26); VBG OXYGEN SATURATION 66.4 (60-80); VBG PH 7.25 (7.30-7.40)
[2023-05-10] MEDS: D5%-1/2NS-KCL 20 MEQ/L IV SOL 1,000 ML IV SCH (20:22)
[2023-05-10] MEDS ORDERED: DEXTROSE 50%-WATER ABBOJECT IVP PRN (21:10)
[2023-05-11] MEDS: D5%-1/2NS-KCL 20 MEQ/L IV SOL 1,000 ML IV SCH (00:02)
[2023-05-11 01:20] LABS: VBG HCO3 20.6 (22-26); VBG OXYGEN SATURATION 95.2 (60-80); VBG PH 7.33 (7.30-7.40)
[2023-05-11 01:25] LABS: CALCIUM 8.11 mg/dL (8.4-10.2); CARBON DIOXIDE 21.9 mmol/L (22-30.0); CHLORIDE 109.2 mmol/L (98-107); GLUCOSE 122.5 mg/dL (74-106); POTASSIUM 4.12 mmol/L (3.5-5.1)
[2023-05-11] MEDS ORDERED: LANTUS SUBCUT ONE (02:20)
[2023-05-11] MEDS ORDERED: HUMALOG SUBCUT PRN (02:33)
[2023-05-11 04:58] LABS: BASOPHILS % (AUTO) 0.2 % (0.0-3.0); EOSINOPHILS # (AUTO) 0.2 K/ul (0.0-0.7); EOSINOPHILS % (AUTO) 1.2 % (0.0-7.0); HEMATOCRIT 38.9 % (42.0-52.0); HEMOGLOBIN 13.2 g/dl (14.0-18.0); IMMATURE GRANULOCYTE % (AUTO) 0.3 % (0.0-5.0); LYMPHOCYTES # (AUTO) 2.9 K/uL (0.60-3.4); MEAN CORPUSCULAR HEMOGLOBIN 29.3 pg (27.0-31.0); MEAN CORPUSCULAR HGB CONC 33.9 (31.8-35.4); MEAN CORPUSCULAR VOLUME 86.4 fl (80.0-94.0); MONOCYTES % (AUTO) 8.4 (0-10); NEUTROPHILS # (AUTO) 7.9 K/ul (2.0-6.9); NEUTROPHILS % (AUTO) 65.9 % (42.2-75.2); PLATELET COUNT 227 10^3/uL (140-440); RDW COEFFICIENT OF VARIATION 12.6 % (11.6-14.8); WHITE BLOOD COUNT 12.07 K/ul (4.2-10.2)
[2023-05-11 05:15] LABS: ALANINE AMINOTRANSFERASE 26.7 U/L (0-50); ALBUMIN 3.79 g/dL (3.5-5.0); ALKALINE PHOSPHATASE 92.6 U/L (38-126); ASPARTATE AMINO TRANSFERASE 26.5 U/L (17-59); BILIRUBIN,TOTAL 0.68 mg/dL (0.2-1.3); BLOOD UREA NITROGEN 13.8 mg/dL (9-20); CALCIUM 7.99 mg/dL (8.4-10.2); CARBON DIOXIDE 19.4 mmol/L (22-30.0); CHLORIDE 106.5 mmol/L (98-107); CHOLESTEROL 143.6 mg/dL (0-200); CREATININE 1.01 mg/dL (0.60-1.10); GLUCOSE 311.6 mg/dL (74-106); HDL CHOLESTEROL 28.8 mg/dL (35-60); POTASSIUM 4.88 mmol/L (3.5-5.1); SODIUM 133.4 mmol/L (134.5-145); TOTAL PROTEIN 6.06 g/dL (6.3-8.2); TRIGLYCERIDES 305.5 mg/dL (0-150)
[2023-05-11 05:34] VITALS: TEMP 98.1
[2023-05-11] MEDS ORDERED: LACTATED RINGERS 1,000 ML IV SCH (06:45)
[2023-05-11] MEDS ORDERED: LOVENOX SUBCUT SCH (09:00)
[2023-05-11] MEDS ORDERED: LACTATED RINGERS 1,000 ML IV STA (09:02)
[2023-05-11 11:20] VITALS: BP 106/60; PULSE 68; RESP 18
--- NOTE | 2023-05-11 11:24 | DI ---
EXAM: PA AND LATERAL VIEWS OF THE CHEST HISTORY: DKA COMPARISON: Chest x-ray 03/05/2023 FINDINGS: The cardiomediastinal silhouette is normal. There is no pneumothorax or pleural effusion. There is no consolidation, nodule or mass. The osseous structures are unremarkable. IMPRESSION: No acute cardiopulmonary process
[2023-05-11 11:45] LABS: CARBON DIOXIDE 17.5 mmol/L (22-30.0); CHLORIDE 105.2 mmol/L (98-107); POTASSIUM 4.42 mmol/L (3.5-5.1); SODIUM 139.5 mmol/L (134.5-145)
[2023-05-11 11:46] LABS: BLOOD UREA NITROGEN 18.1 mg/dL (9-20); CREATININE 1.33 mg/dL (0.60-1.10)
[2023-05-11 11:47] LABS: CALCIUM 9.06 mg/dL (8.4-10.2); GLUCOSE 201.3 mg/dL (74-106); LIPASE 111.4 U/L (23-300)
[2023-05-11 12:34] LABS: BLOOD UREA NITROGEN 11.7 mg/dL (9-20); CALCIUM 8.46 mg/dL (8.4-10.2); CARBON DIOXIDE 23.2 mmol/L (22-30.0); CREATININE 0.8 mg/dL (0.60-1.10); GLUCOSE 146.5 mg/dL (74-106); POTASSIUM 3.73 mmol/L (3.5-5.1)
--- NOTE | 2023-05-11 13:06 | PCM.SS ---
Provider Provider: BILL MOREJON [facility]-C, [facility] Ad[facility] Date Admission Date: 05/10/23 Discharge Date Discharge Date: 05/11/23 Primary Care Physician Primary Care Physician: JADE CHONG Chief Complaint Reason For Visit: DKA, ACUTE KIDNEY INJURY History of Present Illness History of Present Illness: Admitted 05/10/23 17:41, this 32 year old /WHITE/M with past history of insulin-dependent diabetes, migraines, and GERD who presented to ER feeling very dehydrated and having n/v. Patient states he's been using his insulin. He states he's been "pounding water". He has been giving himself humalog boluses to try to bring down his sugar but it wasn't working. Per family he often eats and doesn't count carbs or even check his sugar, he just doses his humalog. He states he often has to use the top of his scale for almost every meal and his sugars still run high. He states he's getting a pump hopefully next . He has an endocrinology apt in Nov 2023. He was admitted 03/23 for DKA, but states prior to that admission it had been about 7 years since his last hospitalization. In ER patient was found to be in DKA with a AG of about 30. He was given 2L of fluids, started on insulin drip and moved to SCU. He was started on more fluids and continued on insulin drip. AG closed, ph and bicarb normal about 2 am on morning on 05/11. He was administered his home insulin and was able to eat. Insulin drip was stopped about an hour later. He was able to tolerate breakfast. BP on low end, another fluid bolus given. Bicarb, potassium, and creatinine all normal at time of discharge. Glucose much improved. Patient feeling well and ready for discharge. 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 Medications Mecications: Medications at Discharge (Home Meds & RX) atorvastatin 40 mg tablet 40 mg PO DAILY 03/05/23 clonidine HCl 0.1 mg tablet,extended release,12 hr 0.1 mg PO DAILY PRN Stress 03/05/23 insulin glargine-yfgn 100 unit/mL (3 mL) subcutaneous pen (Semglee (insulin glargine-yfgn) Pen) 64 unit subcut BID 03/05/23 insulin lispro 200 unit/mL (3 mL) subcutaneous pen (Humalog KwikPen U-200 Insulin) 30 unit subcut DAILY 03/05/23 lisinopril 10 mg tablet 10 mg PO DAILY 03/05/23 pantoprazole 40 mg tablet,delayed release 40 mg PO QDAC #30 tabs 03/06/23 promethazine 25 mg tablet 25 mg PO ONCE PRN vomiting 05/10/23 Allergies Allergies Allergy/AdvReac Type Severity Reaction Status Date / Time cats AdvReac Uncoded 05/10/23 21:32 Review of Systems Constitutional: Reports Fatigue and Weakness; Denies Fever Head: Reports Normocephalic and Atraumatic Eyes: Denies Vision Changes Nose: Denies Post Nasal Drip or Congestion Throat: Denies Sore Throat or Difficulty Swallowing Cardiovascular: Denies Chest pain, Chest Pressure or Edema Respiratory: Denies Cough or Shortness of air Gastrointestinal: Reports Nausea and Vomiting; Denies Diarrhea or Abdominal pain Genitourinary: Denies Dysuria or Hematuria Dermatologic: Denies Rashes Neurological: Denies Dizziness or Syncope Physical Examination Appearance: Positive Well-appearing, Well-nourished, No Apparent Distress and Alert and Oriented x3 Head: Positive Normocephalic and Atraumatic Eyes: Positive MENDY Neck: Positive Supple and Trachea Midline Heart: Positive RRR Respiratory: Positive Breath Sounds Clear, Bilaterally; Negative Crackles, Rhonchi or Wheezes GI/: Positive Soft, Nontender, Bowel sounds normal and No Distention Extremities: Negative Edema Neurological: Positive Cranial nerves intact, Alert and Oriented Psychiatric: Positive Normal Judgement, Normal Insight, Affect Appropriate and Mood Appropriate Vital Signs (Last 4 Hours) Vital Signs Last 4 Hours: Vital Signs: Last 4 Hours 05/11/23 10:00 Pulse Rate 68 Respiratory Rate 18 Blood Pressure 106/60 Blood Pressure Mean 75 Blood Pressure Location Left Arm Blood Pressure Position Supine Oxygen Delivery Method Room Air Labs This Visit Labs This Visit: Labs This Visit 05/10/23 05/10/23 05/10/23 16:06 16:13 16:54 WBC 16.36 H RBC 5.50 Hgb 16.2 Hct 48.8 MCV 88.7 MCH 29.5 MCHC 33.2 RDW Coeff of Tam 12.6 Plt Count 308 Immature Gran % (Auto) 0.4 Neut % (Auto) 80.6 H Lymph % (Auto) 14.2 Crook % (Auto) 4.4 Eos % (Auto) 0.1 Baso % (Auto) 0.3 Neut # (Auto) 13.2 H Lymph # (Auto) 2.3 Crook # (Auto) 0.7 Eos # (Auto) 0.0 Baso # (Auto) 0.1 Immature Gran # (Auto) 0.1 VBG pH 7.08 L VBG pCO2 35 L VBG pO2 38 VBG HCO3 10.4 L VBG O2 Saturation 47.8 L Sodium 136.1 Potassium 5.11 H Chloride 99.9 Carbon Dioxide 11.6 L Anion Gap 29.71 BUN 18.6 Creatinine 1.57 H Estimated GFR (MDRD) 51.00 BUN/Creatinine Ratio 11.84 Glucose 537.6 H* Hemoglobin A1c 12.64 H Calcium 9.53 Phosphorus 5.57 H Magnesium 1.94 Total Bilirubin 0.72 AST 35.1 ALT 36.5 Alkaline Phosphatase 149.2 H Total Creatine Kinase 106.2 Total Protein 8.59 H Albumin 5.43 H Globulin 3.16 Albumin/Globulin Ratio 1.71 Triglycerides Cholesterol LDL Cholesterol, Calc VLDL Cholesterol HDL Cholesterol Cholesterol/HDL Ratio Lipase Urine Color Yellow Urine Clarity Clear Urine pH 5.5 Ur Specific [place] >=1.030 Urine Protein 1+ H Urine Glucose (UA) 2+ H Urine Ketones 3+ H Urine Blood Trace-intact H Urine Nitrite Negative Urine Bilirubin Negative Urine Urobilinogen 0.2 Ur Leukocyte Esterase Negative Urine Microscopic RBC 0-2 Ur Squamous Epith Cells Not Reportable Urine Opiates Screen Negative Ur Oxycodone Screen Negative Urine Methadone Screen Negative Ur Propoxyphene Screen Negative Ur Barbiturates Screen Negative U Tricyclic Antidepress Negative Ur Phencyclidine Scrn Negative Ur Amphetamine Screen Negative U Methamphetamines Scrn Negative U Benzodiazepines Scrn Negative Urine Cocaine Screen Negative U Cannabinoids Screen Positive H Acetone, Qual Small 05/10/23 05/10/23 05/10/23 18:22 18:31 20:00 WBC RBC Hgb Hct MCV MCH MCHC RDW Coeff of Tam Plt Count Immature Gran % (Auto) Neut % (Auto) Lymph % (Auto) [place]ok % (Auto) Eos % (Auto) Baso % (Auto) Neut # (Auto) Lymph # (Auto) [place] # (Auto) Eos # (Auto) Baso # (Auto) Immature Gran # (Auto) VBG pH 7.25 L VBG pCO2 34 L VBG pO2 41 VBG HCO3 14.9 L VBG O2 Saturation 66.4 Sodium 139.5 Potassium 4.42 Chloride 105.2 Carbon Dioxide 17.5 L Anion Gap 21.22 BUN 18.1 Creatinine 1.33 H Estimated GFR (MDRD) 62.00 BUN/Creatinine Ratio 13.60 Glucose 201.3 H D 169.5 H Hemoglobin A1c Calcium 9.06 Phosphorus Magnesium Total Bilirubin AST ALT Alkaline Phosphatase Total Creatine Kinase Total Protein Albumin Globulin Albumin/Globulin Ratio Triglycerides Cholesterol LDL Cholesterol, Calc VLDL Cholesterol HDL Cholesterol Cholesterol/HDL Ratio Lipase 111.4 Urine Color Urine Clarity Urine pH Ur Specific [place] Urine Protein Urine Glucose (UA) Urine Ketones Urine Blood Urine Nitrite Urine Bilirubin Urine Urobilinogen Ur Leukocyte Esterase Urine Microscopic RBC Ur Squamous Epith Cells Urine Opiates Screen Ur Oxycodone Screen Urine Methadone Screen Ur Propoxyphene Screen Ur Barbiturates Screen U Tricyclic Antidepress Ur Phencyclidine Scrn Ur Amphetamine Screen U Methamphetamines Scrn U Benzodiazepines Scrn Urine Cocaine Screen U Cannabinoids Screen Acetone, Qual 05/11/23 05/11/23 05/11/23 01:00 01:10 04:53 WBC 12.07 H RBC 4.50 L Hgb 13.2 L D Hct 38.9 L D MCV 86.4 MCH 29.3 MCHC 33.9 RDW Coeff of Tam 12.6 Plt Count 227 Immature Gran % (Auto) 0.3 Neut % (Auto) 65.9 Lymph % (Auto) 24.0 Crook % (Auto) 8.4 Eos % (Auto) 1.2 Baso % (Auto) 0.2 Neut # (Auto) 7.9 H Lymph # (Auto) 2.9 [place]ok # (Auto) 1.0 Eos # (Auto) 0.2 Baso # (Auto) 0.0 Immature Gran # (Auto) 0.0 VBG pH 7.33 VBG pCO2 39 L VBG pO2 82 H VBG HCO3 20.6 L VBG O2 Saturation 95.2 H Sodium 137.0 133.4 L Potassium 4.12 4.88 Chloride 109.2 H 106.5 Carbon Dioxide 21.9 L 19.4 L Anion Gap 10.02 12.38 BUN 13.0 13.8 Creatinine 1.00 1.01 Estimated GFR (MDRD) 87.00 86.00 BUN/Creatinine Ratio 13.00 13.66 Glucose 122.5 H 311.6 H D Hemoglobin A1c Calcium 8.11 L 7.99 L Phosphorus Magnesium Total Bilirubin 0.68 AST 26.5 ALT 26.7 Alkaline Phosphatase 92.6 D Total Creatine Kinase Total Protein 6.06 L Albumin 3.79 Globulin 2.27 Albumin/Globulin Ratio 1.66 Triglycerides 305.5 H Cholesterol 143.6 LDL Cholesterol, Calc 54 VLDL Cholesterol 61 H HDL Cholesterol 28.8 L Cholesterol/HDL Ratio 5.0 Lipase Urine Color Urine Clarity Urine pH Ur Specific [place] Urine Protein Urine Glucose (UA) Urine Ketones Urine Blood Urine Nitrite Urine Bilirubin Urine Urobilinogen Ur Leukocyte Esterase Urine Microscopic RBC Ur Squamous Epith Cells Urine Opiates Screen Ur Oxycodone Screen Urine Methadone Screen Ur Propoxyphene Screen Ur Barbiturates Screen U Tricyclic Antidepress Ur Phencyclidine Scrn Ur Amphetamine Screen U Methamphetamines Scrn U Benzodiazepines Scrn Urine Cocaine Screen U Cannabinoids Screen Acetone, Qual 05/11/23 12:00 WBC RBC Hgb Hct MCV MCH MCHC RDW Coeff of Tam Plt Count Immature Gran % (Auto) Neut % (Auto) Lymph % (Auto) [place] % (Auto) Eos % (Auto) Baso % (Auto) Neut # (Auto) Lymph # (Auto) [place] # (Auto) Eos # (Auto) Baso # (Auto) Immature Gran # (Auto) VBG pH VBG pCO2 VBG pO2 VBG HCO3 VBG O2 Saturation Sodium 135.0 Potassium 3.73 Chloride 107.0 Carbon Dioxide 23.2 Anion Gap 8.53 BUN 11.7 Creatinine 0.80 Estimated GFR (MDRD) 112.00 BUN/Creatinine Ratio 14.62 Glucose 146.5 H D Hemoglobin A1c Calcium 8.46 Phosphorus Magnesium Total Bilirubin AST ALT Alkaline Phosphatase Total Creatine Kinase Total Protein Albumin Globulin Albumin/Globulin Ratio Triglycerides Cholesterol LDL Cholesterol, Calc VLDL Cholesterol HDL Cholesterol Cholesterol/HDL Ratio Lipase Urine Color Urine Clarity Urine pH Ur Specific [place] Urine Protein Urine Glucose (UA) Urine Ketones Urine Blood Urine Nitrite Urine Bilirubin Urine Urobilinogen Ur Leukocyte Esterase Urine Microscopic RBC Ur Squamous Epith Cells Urine Opiates Screen Ur Oxycodone Screen Urine Methadone Screen Ur Propoxyphene Screen Ur Barbiturates Screen U Tricyclic Antidepress Ur Phencyclidine Scrn Ur Amphetamine Screen U Methamphetamines Scrn U Benzodiazepines Scrn Urine Cocaine Screen U Cannabinoids Screen Acetone, Qual Imaging Imaging: EXAM: PA AND LATERAL VIEWS OF THE CHEST HISTORY: DKA COMPARISON: Chest x-ray 03/05/2023 FINDINGS: The cardiomediastinal silhouette is normal. There is no pneumothorax or pleural effusion. There is no consolidation, nodule or mass. The osseous structures are unremarkable. IMPRESSION: No acute cardiopulmonary process Review Review Statement: I have independently reviewed and interpreted the labs/EKGs/imaging that were ordered by the ER provider. I have reviewed all outside records that are available currently in our EMR including imaging/notes/labs from previous visits. Plan Reccomendations/Plan: 1. DKA - AG initially 30. Started on insulin drip and fluids. Fluids changed according to bmps q4hrs. Ph normalized. Insulin drip stopped at about 2 am on 05/11. Pt able to tolerate diet. Home insulin given. AG closed and bicarb normal prior to discharge. 2. DMT1, uncontrolled - A1c >12. Pt getting insulin pump next week. Has endocrine f/u scheduled for nov 24. Discussed increasing his humalog scale by 1- 2 units since he is always maxing out his scale and still having high sugars. Diabetic diet encouraged. Continue lisinopril and statin. 3. Hypertriglyceridemia - Recommended fish oil in addition to his statin. 4. Hypotension, mild, asymptomatic - Resolved with fluids. Held lisinopril today, may continue upon discharge. 5. AG, stage I in setting of dehydration and DKA - Resolved with fluids. 6. GERD - Continue ppi Discharge DX: DKA, resolved Hypotension, resolved AG, resolved DMT1, uncontrolled, chronic Hypertriglyceridemia, chronic GERD, chronic Additional Planning: Case discussed with ED Physician, Dr. Serrano. DVT Prophylaxis: Lovenox Advanced Care Plannin minutes spent discussing advance care planning. FULL CODE Admit to: Inpatient/ SCU Discussed Plan of Care with Dr. Antoine Bowman. Review With Patient Reviewed with Patient and Family: Patient and family have been counseled on condition and care plan and have no immediate questions. I have personally discussed and reviewed the patient's visit/current labs/imaging/decision making with Dr. Antoine Bowman, my supervising attending. Total number of minutes spent with patient 85 min. More than 50% of the time spent with this patient was devoted to counseling and coordination of care. Time of Admission:05/10/23 17:41 Time of Discharge: 05/11/23 13:00 Discharge Plan Discharge Discharge Orders: Discharge Patient (ONCE); Ordered 05/11/23 Ordered By: BILL MOREJON Activity Restrictions/Additional Instructions: DISCHARGE TO HOME DX: DKA ACTIVITY: TOLERATED DIET: DIABETIC INCREASE YOUR SLIDING SCALE BY 1-2U F/U WITH PCP YOU HAVE A HOSPITAL FOLLOW UP WITH DR. CHONG'S OFFICE ON WednesdayMay AT 10:45AM. SHOULD YOU HAVE ANY QUESTIONS OR NEED TO RESCHEDULE YOU CAN CONTACT THEIR OFFICE AT [phone]. YOU SHOULD STAY OFF WORK UNTIL SEEN BY YOUR PRIMARY CARE PROVIDER. Instructions: Acute Kidney Injury (GEN), Diabetic Ketoacidosis (GEN) Care Plan Goals: Problem: Altered Blood Glucose Level Goal: Maintain blood glucose level Within Normal Limits Instructions: Diet as ordered Diet consult if indicated Monitor accucheck levels Monitor signs/symptoms of altered glucose Patient Disposition: HOME SELF-CARE Prescriptions: Continued atorvastatin 40 mg tablet 40 mg PO DAILY lisinopril 10 mg tablet 10 mg PO DAILY insulin glargine-yfgn [Semglee(insulin glarg-yfgn)Pen] 100 unit/mL (3 mL) insulin pen 64 unit SUBCUT BID Patient Comments: ADMINISTER 64 UNITS UNDER THE SKIN TWICE DAILY Humalog KwikPen Insulin 200 unit/mL (3 mL) insulin pen 30 unit SUBCUT DAILY Patient Comments: ADMINISTER 30 UNITS UNDER THE SKIN DAILY. MAX PER SLIDING SCALE UNDER THE SKIN 30 DAYS 20 clonidine HCl 0.1 mg tablet extended release 12 hr 0.1 mg PO DAILY PRN (Reason: Stress) pantoprazole 40 mg Tablet,Delayed Release (Dr/Ec) 40 mg PO QDAC Qty: 30 0RF promethazine 25 mg tablet 25 mg PO ONCE PRN (Reason: vomiting) Patient Comments: TAKE 1 TABLET BY MOUTH EVERY 12 HOURS FOR 10 DAYS NEEDED Did you review [place] [employer] for ALL controlled substances?: Not Applicable Discussed opioids are addictive and Narcan is available by prescription or from pharmacy.: No Condition: Good
== END 2023-05-11 13:20 | disposition home or self-care (01) | DRG 638 ==
LOC: ED 15:39 → SCU 17:41
PROVIDERS: ADMIT Hospitalist; ATTEND Physician Assistant